=== PATIENT | female | born 1945 | race Caucasian/White ===

== ENCOUNTER → 2017-05-07 | Outpatient (CLI) | payer MEDICARE, OTHER ==
[~2017-05-07] MED LIST: ASPI-1471 PO; BIMA2.5D5 OP; CAR6.25 PO; CHOL100059 PO; DIP25 PO; EST42T PV; FISH1CAP15 PO; HYDR-4309 PO; HYDRO25 PO; METH4TAB57 PO; RAN150 PO; ROSU20TA13 PO; ROSU40TA10 PO; SIMV10TA96 PO; [UNRECOGNIZED DRUG - CODE] PO
== END ==
LOC: RESP 19:50
PROVIDERS: ATTEND Emergency Medicine
DX: G47.33 Obstructive sleep apnea (adult) (pediatric) (principal); G47.61 Periodic limb movement disorder

== ENCOUNTER → 2017-05-12 | Outpatient (CLI) | payer MEDICARE, OTHER ==
[2017-05-12 09:34] LABS: PLATELET COUNT, AUTOMATED 269 K/uL (150-450)
== END ==
LOC: LAB 09:05
PROVIDERS: ATTEND Emergency Medicine
DX: E78.5 Hyperlipidemia, unspecified (principal); R79.89 Other specified abnormal findings of blood chemistry
CPT/HCPCS: 36415; 82465; 83718; 83880; 84478; 85007; 85027

== ENCOUNTER → 2017-05-14 | Outpatient (CLI) | payer MEDICARE, OTHER ==
--- NOTE | 2017-05-14 11:26 | RADIOLOGY IMAGING REPORT ---
FACILITY: [facility] PATIENT NAME: Meg Cuadra : 1945 MR: [id number] V: [id number] EXAM DATE: ORDERING PHYSICIAN: ARMIDA COLORADO TECHNOLOGIST: [place] [facility] [place] Cuadra : 1945 Visit/Account:[id number] Date of Sevice: 05/14/2017 Carotid artery Doppler duplex ultrasound scan. HISTORY: Atherosclerosis. COMPARISON: None. A color flow Doppler duplex ultrasound scan with spectral analysis was performed on the carotid and v ertebral arteries bilaterally. Measurement of carotid stenosis is based on velocity parameters that correlate the residual internal carotid diameter with [place] Symptomatic Carotid Endarterecto my Trial (NASCET)- based stenosis levels. Right carotid peak systolic velocities are as follows: Superior right ICA - 42 cm/sec. Mid right ICA - 110 cm/sec. Proximal right ICA - 85 cm/sec. Right carotid bulb - 92 cm/sec. Superior right CCA - 104 cm/sec. Mid right CCA- 101 cm/sec. Inferior right CCA- 123 cm/sec. Proximal right ECA- 92 cm/sec. Mid right vertebral- 28 cm/sec. Right ICA/CCA ratio- 1.1 ( normal < 1.5 ). Antegrade right vertebral artery flow- YES. Left carotid peak systolic velocities are as follows: Superior left ICA - 61 cm/sec. Mid left ICA- 68 cm/sec. Proximal left ICA- 97 cm/sec. Left carotid bulb- 65 cm/sec. Superior left CCA- 116 cm/sec. Mid left CCA- 122 cm/sec. Inferior left CCA- 125 cm/sec. Proximal left ECA- 81 cm/sec. Mid left vertebral- 49 cm/sec. Left ICA/CCA ratio- 0.8 ( normal < 1.5). Antegrade left vertebral artery flow- YES. Mild intimal thickening is present in the carotid bulbs and proximal internal carotid arteries bilate rally. IMPRESSION: Mild carotid atherosclerosis without evidence of hemodynamically significant focal stenosis. Report Dictated By: Deepak Buckley MD at 05/14/2017 11:08 AM Report E-Signed By: Deepak Buckley MD at 05/14/2017 11:22 AM WSN:[id number]
== END ==
LOC: US 01:04
PROVIDERS: ATTEND Emergency Medicine
DX: I65.23 Occlusion and stenosis of bilateral carotid arteries (principal)
CPT/HCPCS: 93880

== ENCOUNTER → 2017-10-14 | Outpatient (CLI) | payer MEDICARE, OTHER | LOC: LAB 09:02 | PROVIDERS: ATTEND Emergency Medicine | DX: E78.00 Pure hypercholesterolemia, unspecified (principal) | CPT/HCPCS: 36415; 82040; 82247; 82310; 82374; 82435; 82565; 82947; 84075; 84132; 84155; 84295; 84450; 84460; 84520 ==

== ENCOUNTER → 2017-11-18 | Outpatient (CLI) | payer MEDICARE, OTHER ==
[~2017-11-18] MED LIST changes: -ROSU20TA13 PO; +ROSU20TA5 PO; -ROSU40TA10 PO; +ROSU40TA2 PO
--- NOTE | 2017-11-18 13:49 | RADIOLOGY IMAGING REPORT ---
[place] [facility] [place] ANANT SHAFER : [id number] MR: [id number] V: [id number] EXAM DATE: ORDERING PHYSICIAN: ARMIDA COLORADO TECHNOLOGIST: Regine Atkins PROCEDURE:BILATERAL DIGITAL SCREENING MAMMOGRAM WITH CAD ASSISTED INTERPRETATION & 3D TOMOSYNTHESIS COMPARISON:Prior mammograms 10/29/16, 10/24/15, 10/03/14. INDICATIONS:SCREENING FINDINGS: The breast tissue demonstrates scattered fibroglandular densities. There is no dominant mass, suspicious cluster of microcalcifications or persistent areas of architectural distortion. DIAGNOSTIC CATEGORY 1--NEGATIVE. RECOMMENDATIONS: ROUTINE MAMMOGRAM AND CLINICAL EVALUATION IN 1 YEAR. IMPRESSION: BIRADS 1: Negative. Dictated by: Calos Gardiner M.D. on 11/18/2017 at 11:52 Transcribed by: LUCRECIA on 11/18/2017 at 13:05 Approved by: Calos Gardiner M.D. on 11/18/2017 at 13:48 [facility]
== END ==
LOC: MAMO 01:48
PROVIDERS: ATTEND Emergency Medicine
DX: Z12.31 Encounter for screening mammogram for malignant neoplasm of breast (principal)
CPT/HCPCS: 77063; 77067

== ENCOUNTER → 2018-08-11 | Outpatient (CLI) | payer MEDICARE, OTHER ==
[~2018-08-11] MED LIST changes: -HYDR-4309 PO; +HYDR-653 PO
== END ==
LOC: LAB 13:15
PROVIDERS: ATTEND Emergency Medicine
DX: N32.89 Other specified disorders of bladder (principal)
CPT/HCPCS: 81001

== ENCOUNTER → 2018-10-16 | Outpatient (CLI) | payer MEDICARE, OTHER ==
[2018-10-16 09:44] LABS: PLATELET COUNT, AUTOMATED 284 K/uL (150-450)
--- NOTE | 2018-10-16 09:50 | EKG ---
FACILITY: PATIENT NAME: ANANT SHAFER : [id number] MR: [id number] V: [id number] EXAM DATE: ORDERING PHYSICIAN: ARMIDA COLORADO TECHNOLOGIST: KEARA Srivastava Reason : POST ABLATION HX Blood Pressure : / mmHG Vent. Rate : 069 BPM Atrial Rate : 069 BPM P-R Int : 158 ms QRS Dur : 068 ms QT Int : 428 ms P-R-T Axes : 044 -09 051 degrees QTc Int : 458 ms Normal sinus rhythm Normal ECG When compared with ECG of 21-OCT-2016 09:58, premature ventricular complexes are no longer present Confirmed by ARMIDA COLORADO ([id number]) on 10/20/2018 8:09:01 AM Referred By: MARCUS Confirmed By:ARMIDA COLORADO
[2018-10-16 10:35] LABS: LDL CHOLESTEROL 50 mg/dl
== END ==
LOC: LAB 09:18
PROVIDERS: ATTEND Emergency Medicine
DX: E78.00 Pure hypercholesterolemia, unspecified (principal); G47.33 Obstructive sleep apnea (adult) (pediatric); M85.80 Other specified disorders of bone density and structure, unspecified site
CPT/HCPCS: 36415; 82040; 82247; 82306; 82310; 82374; 82435; 82465; 82565; 82947; 83718; 84075; 84132; 84155; 84295; 84450; 84460; 84478; 84520; 85025; 93005

== ENCOUNTER → 2018-10-21 | Outpatient (CLI) | payer MEDICARE, OTHER ==
[~2018-10-21] MED LIST changes: +DIPH0.5S2 IM; +[UNRECOGNIZED DRUG - CODE]
== END ==
LOC: LAB 09:25
PROVIDERS: ATTEND Emergency Medicine
DX: R63.5 Abnormal weight gain (principal)
CPT/HCPCS: 36415; 84439; 84443

== ENCOUNTER → 2018-12-17 | Outpatient (CLI) | payer MEDICARE, OTHER ==
[~2018-12-17] MED LIST changes: +ROSU40TA18 PO
--- NOTE | 2018-12-18 13:59 | RADIOLOGY IMAGING REPORT ---
FACILITY: [facility] PATIENT NAME: ANANT SHAFER : [id number] MR: [id number] V: [id number] EXAM DATE: [id number] ORDERING PHYSICIAN: ARMIDA COLORADO TECHNOLOGIST: Keerthi Manjarrez PROCEDURE: BILATERAL DIGITAL SCREENING MAMMOGRAM WITH CAD ASSISTED INTERPRETATION & 3D TOMOSYNTHESIS REASON FOR STUDY: Screening. FAMILY HISTORY OF BREAST CANCER: None. BREAST PROCEDURES/TREATMENTS: None. COMPARISON: 11/18/17, 10/29/16, 10/24/15, 10/03/14, 09/20/13, 09/10/12. VIEWS OBTAINED: Bilateral 2D & 3D full field CC & MLO projections. BREAST DENSITY: There are scattered areas of fibroglandular density throughout the breasts. MAMMOGRAM FINDINGS: The parenchymal pattern has remained stable allowing for difference in mammographic technique & patient positioning. IMPRESSION: BIRADS 1: Negative. DIAGNOSTIC CATEGORY 1--NEGATIVE. RECOMMENDATIONS: ROUTINE MAMMOGRAM AND CLINICAL EVALUATION. Dictated by: Erika Lopez M.D. on 12/17/2018 at 16:20 Transcribed by: LUCRECIA on 12/18/2018 at 13:43 Approved by: Erika Lopez M.D. on 12/18/2018 at 13:54 [facility]
== END ==
LOC: MAMO 01:29
PROVIDERS: ATTEND Emergency Medicine
DX: Z12.31 Encounter for screening mammogram for malignant neoplasm of breast (principal)
CPT/HCPCS: 77063; 77067